=== PATIENT | female | born 2000 | race Caucasian/White ===

== ENCOUNTER 2024-03-15 12:07 | Emergency (ER) | payer BC, OTHER ==
[2024-03-15] MEDS ORDERED: HYDROmorphone 0.5 MG/0.5 ML SYRINGE ONE (13:36)
[2024-03-15] MEDS ORDERED: MD-Gastroview 120 ML BOT ONE (14:08)
[2024-03-15] MEDS ORDERED: Sodium Chloride 0.9% 500 ML ONE (14:09)
== END 2024-03-15 19:10 | disposition home or self-care (01) ==
LOC: ERS 12:07
DX: K94.23 Gastrostomy malfunction (principal); Z79.899 Other long term (current) drug therapy
CPT/HCPCS: 43762; 74018; 96374; J7030; Q9963